=== PATIENT | female | born 1955 | race Caucasian/White ===

== ENCOUNTER 2018-03-17 23:39 | Emergency (ER) | payer OTHER ==
[~2018-03-17] VITALS: Ht 152.4 cm; Wt 56.7 kg
[2018-03-17 23:44] VITALS: BP 168/92
[2018-03-17] MEDS ORDERED: DIAZEPAM 5 MG TAB PO ONE (23:45)
[2018-03-17] MEDS ORDERED: KETOROLAC 30 MG/ML VIAL IM ONE (23:45)
[2018-03-17] MEDS ORDERED: LOSA50TA66 PO (23:47)
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
[2018-03-18 01:37] VITALS: BP 144/86
== END 2018-03-18 01:38 | disposition home or self-care (01) ==
LOC: MED 23:39
DX: R07.89 Other chest pain (principal); I10 Essential (primary) hypertension; Z79.899 Other long term (current) drug therapy; V47.6XXA Car passenger injured in collision with fixed or stationary object in traffic accident, initial encounter; Y93.89 Activity, other specified; Y92.411 Interstate highway as the place of occurrence of the external cause; Y99.8 Other external cause status
CPT/HCPCS: 71045; 96372; 99283; J1885; Q0092

== ENCOUNTER 2019-08-02 18:36 | Emergency (ER) | payer OTHER ==
[~2019-08-02] VITALS: Ht 152.4 cm; Wt 59.0 kg
[~2019-08-02 18:36] MED LIST: LOSA50TA66 PO
[2019-08-02 18:54] VITALS: BP 130/72
[2019-08-02 20:01] VITALS: BP 130/72
== END 2019-08-02 20:01 | disposition home or self-care (01) ==
LOC: MED 18:36
DX: T16.2XXA Foreign body in left ear, initial encounter (principal); S00.412A Abrasion of left ear, initial encounter; I10 Essential (primary) hypertension; Z79.899 Other long term (current) drug therapy; X58.XXXA Exposure to other specified factors, initial encounter; Y93.89 Activity, other specified; Y92.89 Other specified places as the place of occurrence of the external cause; Y99.8 Other external cause status
CPT/HCPCS: 99282